=== PATIENT | female | born 1980 | race Caucasian/White ===

== ENCOUNTER 2020-05-14 02:40 | Emergency (ER) | payer SELFPAY ==
[2020-05-14] MEDS ORDERED: IBUPROFEN 200 MG TAB PO ONE (02:55)
--- NOTE | 2020-05-14 02:58 | ED.PDOC ---
History of Present Illness - General Chief Complaint: Problem Stated Complaint: thinks she has an UTI Time Seen by Provider: 05/14/20 02:42 Source: patient Exam Limitations: no limitations - History of Present Illness Initial Comments: The patient is a 40-year-old female presented emergency room secondary to symptoms likely of a urinary tract infection. The patient has had urinary frequency and dysuria for the last 24 hours. The patient did take a dose of Azo. Her last urinary tract infection was about a year ago. No flank pain or fevers. Timing/Duration: 24 hours Severity: moderate Improving Factors: nothing Worsening Factors: nothing Associated Symptoms: denies symptoms Allergies/Adverse Reactions: Allergies NO KNOWN ALLERGY Allergy (Verified 05/14/20 02:57) Home Medications: Ambulatory Orders Lisinopril 10 mg PO DAILY 08/01/15 Metformin HCl [Metformin Hydrochloride] 500 mg PO DAILY 08/01/15 Ciprofloxacin [Cipro] 500 mg PO BID #14 tab 05/14/20 Review of Systems - Review of Systems Constitutional: States: no symptoms reported EENTM: States: no symptoms reported Respiratory: States: no symptoms reported Cardiology: States: no symptoms reported Gastrointestinal/Abdominal: States: no symptoms reported Genitourinary: States: see HPI Musculoskeletal: States: no symptoms reported Skin: States: no symptoms reported Neurological: States: no symptoms reported Endocrine: States: no symptoms reported All other Systems: No Change from Baseline Past Medical History (General) - Patient Medical History Hx Seizures: No Hx Stroke: No Hx Dementia: No Hx Asthma: No Hx of COPD: No Hx Cardiac Disorders: No Hx Congestive Heart Failure: No Hx Pacemaker: No Hx Hypertension: Yes Hx Thyroid Disease: No Hx Diabetes: Yes Hx Gastroesophageal Reflux: No Hx Renal Disease: No Hx Cancer: No Hx of HIV: No Hx Hepatitis C: No Hx MRSA: No - Vaccination History Hx Tetanus, Diphtheria Vaccination: No Hx Influenza Vaccination: No Hx Pneumococcal Vaccination: No - Social History Hx Tobacco Use: Yes Hx Chewing Tobacco Use: No Hx Alcohol Use: Yes - occasionally Hx Substance Use: No Hx Substance Use Treatment: No Hx Depression: No Hx Physical Abuse: No Hx Emotional Abuse: No Hx Suspected Abuse: No - Female History Patient : No Family Medical History - Family History Grandparents Hx Family Congestive Heart Failure: Yes Physical Exam - Physical Exam General Appearance: Alert, Comfortable, No apparent distress Eye Exam: bilateral normal Ears, Nose, Throat: hearing grossly normal Neck: supple Respiratory: no respiratory distress, no accessory muscle use Cardiovascular/Chest: normal peripheral pulses, no edema Peripheral Pulses: radial,right: 2+, radial,left: 2+ Gastrointestinal/Abdominal: non tender - Obese, soft Rectal Exam: deferred Back Exam: no CVA tenderness Extremity: non-tender, no pedal edema, normal capillary refill Neurologic: project developer II-XII nml as tested, alert, normal mood/affect, oriented x 3 Skin Exam: normal color Comments: Vital Signs - 8 hr 05/14/20 02:45 Temperature 97.7 F Pulse Rate [ 115 H monitor] Respiratory 18 Rate Blood Pressure 159/131 [Left Arm] O2 Sat by Pulse 100 Oximetry Progress - Progress Progress: 05/14/20 02:57 The patient is a 40-year-old female presented emergency room secondary to symptoms of urinary tract infection. The patient will be treated with a dose of Rocephin here as well as 7 days of oral ciprofloxacin. Urine will be cultured. She needs to keep well-hydrated. Motrin can be used for discomfort. She does need to repeat a urinalysis in a couple of weeks for a test of cure. ER warnings are given. Keep routine follow-up with primary care doctor. [place] aguilar [id number] - Results/Orders Results/Orders: Laboratory Tests 05/14/20 03:00 Urine Color Dk yellow H Urine Appearance Cloudy Urine pH 5.5 Ur Specific [place] >= 1.030 Urine Protein >=300 H Urine Glucose (UA) Negative Urine Ketones 15 H Urine Blood Moderate H Urine Nitrite Positive H Urine Bilirubin Small H Urine Urobilinogen 0.2 Ur Leukocyte Esterase Small H Urine RBC 5-10 H Urine WBC >50 H Ur Epithelial Cells 5-10 Urine Bacteria Rare Departure - Departure Clinical Impression: Cystitis Disposition: Discharge to Home or Self Care Condition: Fair Departure Forms: ED Discharge - Pt. Copy, Patient Portal Self Enrollment Diet: regular diet Activity: increase activity as tolerated Referrals: Philipp Koenig MD [Primary Care Provider] - 1-2 Weeks Prescriptions: Ciprofloxacin [Cipro] 500 mg PO BID #14 tab Home Medications: Ambulatory Orders Lisinopril 10 mg PO DAILY 08/01/15 Metformin HCl [Metformin Hydrochloride] 500 mg PO DAILY 08/01/15 Ciprofloxacin [Cipro] 500 mg PO BID #14 tab 05/14/20 Additional Instructions: The patient is a 40-year-old female presented emergency room secondary to symptoms of urinary tract infection. The patient will be treated with a dose of Rocephin here as well as 7 days of oral ciprofloxacin. Urine will be cultured. She needs to keep well-hydrated. Motrin can be used for discomfort. She does need to repeat a urinalysis in a couple of weeks for a test of cure. ER warnings are given. Keep routine follow-up with primary care doctor.
[2020-05-14] MEDS ORDERED: CIPROFLOXACIN 500 MG TAB PO ONE (03:39)
[2020-05-14] MEDS ORDERED: cefTRIAXone SODIUM 1 GM VIAL IM ONE (03:39)
[2020-05-14] MEDS ORDERED: PHENAZOPYRIDINE HCL 200 MG TAB PO ONE (03:44)
[2020-05-14] MEDS ORDERED: LIDOCAINE 1% 10 ML VIAL INJ ONE (03:47)
[2020-05-14 04:17] VITALS: BP 146/106; TEMP 98; O2SAT 98
== END 2020-05-14 04:13 | disposition home or self-care (01) ==
LOC: ER 02:40
DX: N30.90 Cystitis, unspecified without hematuria (principal); I10 Essential (primary) hypertension; E11.9 Type 2 diabetes mellitus without complications; Z87.440 Personal history of urinary (tract) infections; Z79.899 Other long term (current) drug therapy; Z87.891 Personal history of nicotine dependence
CPT/HCPCS: 81001; 87077; 87086; J0696